=== PATIENT | male | born 1980 | race Caucasian/White ===

== ENCOUNTER 2022-11-14 07:08 | Day surgery (SDC) | payer OTHER, SELFPAY ==
[2022-11-14] VITALS (16 sets, daily range): BP systolic 93–157; BP diastolic 52–141; PULSE 40–65; RESP 16–18; TEMP 36–36.8; O2SAT 96–100; BMI 22.2
--- NOTE | 2022-11-14 07:40 | W.PM.H&PU ---
History & Physical Update History & Physical Update H&P Reviewed and patient assessed: No changes noted
[2022-11-14] MEDS: SODIUM CHLORIDE 0.9 % (FLUSH) 10 ML SYRINGE IVF (07:55)
[2022-11-14] MEDS: LACTATED RINGERS 1000 ML 1,000 ML 100 ML IV (07:55)
[2022-11-14] MEDS: CEFAZOLIN 2 GM INJ IVP (08:51)
--- NOTE | 2022-11-14 08:56 | W.ANESCHARGE ---
Anesthesia Charges Start Date/Time Anesthesia Start Date: 11/14/22 Anesthesia Start Time: 08:36 Stop Date/Time Anesthesia Stop Date: 11/14/22 Anesthesia Stop Time: 09:54
--- NOTE | 2022-11-14 09:57 | W.ANESCHARGE ---
Anesthesia Charges Start Date/Time Anesthesia Start Date: 11/14/22 Anesthesia Start Time: 08:36 Stop Date/Time Anesthesia Stop Date: 11/14/22 Anesthesia Stop Time: 09:54
[2022-11-14] MEDS: LACTATED RINGERS 1000 ML 1,000 ML 35 ML IV (10:01)
--- NOTE | 2022-11-14 10:13 | P.ORPRC_ITS ---
Procedure Note Date of procedure: 11/14/22 Procedure: PREOPERATIVE DIAGNOSIS: 1. Right knee medial meniscus tear POSTOPERATIVE DIAGNOSIS: 1. Right knee medial meniscus tear PROCEDURE: 1. Right knee arthroscopic partial medial menisectomy SURGEON: Ezequiel Aleman M.D. HEADLIGHT ADJUSTER: OPAC. Rosalva An habilitation assistant was critical for this case to aid in patient positioning, knee manipulation, instrument exchange, and closure. ANESTHESIA: Spinal EBL: 2 mL TOURNIQUET: Not applicable COMPLICATIONS: None INDICATIONS: 42-year-old male who sustained injury to his right knee rub performing [employer] approximately 2 weeks ago. Following the injury, he developed right knee pain and mechanical symptoms. An MRI was performed which revealed a complex bucket-handle tear involving the posterior horn and body of the medial meniscus. Recommendation was subsequent made for surgical intervention consisting of arthroscopic partial meniscectomy versus possible meniscal repair. Prior to surgery risks and benefits were discussed with patient all questions were answered and informed consent was obtained. FINDINGS: Examination under anesthesia revealed full range of motion. Brinda's posterior drawer tests were negative. Knee is stable to varus and valgus stress. Arthroscopic examination revealed a complex bucket-handle tear involving the posterior horn and body of the medial meniscus. The bucket-handle portion of the meniscus had horizontal and vertical cleavage tear in the posterior horn had a horizontal cleavage tear. 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 Normal cartilage of the medial femoral condyle, lateral femoral condyle, patella, and trochlea. ACL PCL were intact. There are no intra-articular loose bodies. DESCRIPTION OF PROCEDURE: After a thorough discussion of risks, benefits, and alternatives, the patient was brought to the operating room and spinal anesthesia was administered. He was then placed in supine position OR table. a tourniquet placed on the right thigh, but was not utilized during the procedur e. 2 g IV Ancef was administered preoperatively for prophylaxis. The right lower extremity was prepped and draped in the appropriate sterile fashion. A surgical time-out was performed confirming patient identity, surgical site, and procedure. Anterolateral an anteromedial portals were Injected with corpus Marcaine with epinephrine. Anterolateral portals established with an 11 blade. Anterior medial portal was established after localization with spinal needle . Diagnostic arthroscopy was performed with findings as noted above. Following the diagnostic arthroscopy, partial medial meniscectomy was performed arthroscopic biters and motorized shaver. Following partial meniscectomy,the meniscus was re-probed and found to be stable. Approximately 40% of the overall meniscus was resected, but of the portion that was worked on, approximately 70% of the depth was resected. after removing all remaining meniscal debris, arthroscopic instruments were removed and excess fluid was drained from the joint. Portal sites were closed with 4-0 Monocryl and Steri-Strips. Dressings were applied. The patient was awoken from anesthesia and transferred to the PACU in stable condition. PLAN: 1. Weightbear as tolerated right lower extremity. 2. Ice, elevation, acetominophen and/or ibuprofen, and [place] for pain as needed. 3. Knee range of motion and quad sets/straight leg raise regularly 4. Follow up in orthopedic clinic in 1-2 weeks for a wound check.
[2022-11-14] MEDS: MEPERIDINE 25 MG/ML INJ 12.5 MG IVP (10:21)
--- NOTE | 2022-11-14 10:45 | SUR.PHASEI ---
patient met discharge criteria per anesthesia
== END 2022-11-14 12:16 | disposition home or self-care (01) ==
PROVIDERS: PCP Family Medicine; Visit Provider Orthopaedic Surgery
PROC: (CPT 29870; principal; 2022-11-14 08:45)
DX: S83.211A Bucket-handle tear of medial meniscus, current injury, right knee, initial encounter (principal)
CPT/HCPCS: 29881; 01400; J0690; J1100; J2175; J2250; J2405; J2704; J3010; J7120

== ENCOUNTER 2023-10-11 08:00 | Outpatient (RCR) | payer OTHER, SELFPAY | END 2023-10-11 09:48 | disposition home or self-care (01) | PROVIDERS: PCP Family Medicine; Visit Provider Student in an Organized Health Care Education/Training Program | DX: S39.012A Strain of muscle, fascia and tendon of lower back, initial encounter (principal); S76.302A Unspecified injury of muscle, fascia and tendon of the posterior muscle group at thigh level, left thigh, initial encounter; Z51.89 Encounter for other specified aftercare | CPT/HCPCS: 97110; 97140; 97161 ==